=== PATIENT | female | born 1975 | race Caucasian/White ===

== ENCOUNTER → 2018-09-09 11:27 | Outpatient (CLI) | payer OTHER, SELFPAY ==
--- NOTE | 2018-09-09 | DI.MG.S_ITS ---
BILATERAL DIGITAL SCREENING MAMMOGRAM 3D/2D WITH CAD: 09/09/2018 CLINICAL: Routine screening. Family history of breast cancer. Comparison is made to exams dated: 09/07/2017 mammogram, 09/04/2016 mammogram, and 01/09/2014 mammogram - [facility]. The tissue of both breasts is extremely dense, which lowers the sensitivity of mammography. Current study was also evaluated with a Computer Aided Detection (CAD) system. No significant masses, calcifications, or other findings are seen in either breast. There has been no significant interval change. IMPRESSION: NEGATIVE There is no mammographic evidence of malignancy. A 1 year screening mammogram is recommended. This exam was interpreted at Station ID: [id number]. NOTE: For mammograms, a report in lay terms will be sent to the patient. Approximately 15% of breast malignancies will not be visualized mammographically. In the management of a palpable breast mass, a negative mammogram must not discourage biopsy of a clinically suspicious lesion. Electronically Signed By: Tonja cardoso/florentino:09/10/2018 09:01:40 letter sent: Normal Exam ACR BI-RADS Category 1: Negative 3341F
== END ==
PROVIDERS: PCP Physician Assistant; Visit Provider Physician Assistant
DX: Z12.31 Encounter for screening mammogram for malignant neoplasm of breast (principal); Z80.3 Family history of malignant neoplasm of breast
CPT/HCPCS: 77063; 77067

== ENCOUNTER → 2018-11-19 07:31 | Outpatient (CLI) | payer OTHER, SELFPAY ==
[2018-11-19 09:10] LABS: Add Manual Diff / Slide Review NO; Basophils Absolute Auto 0 /uL (0-100); Basophils Percent Auto 0.7 % (0-2); Eosinophils Absolute Auto 200 /uL (0-450); Eosinophils Percent Auto 3.1 % (2-4); Hematocrit 47.6 % (36-46); Hemoglobin 16.6 g/dL (12.0-16.0); Lymphocytes Absolute Auto 1800 /uL (1100-4500); Lymphocytes Percent Auto 31.4 % (25-40); Mean Corpuscular HGB Conc 34.9 % (30-36); Mean Corpuscular Hemoglobin 32.4 PG (26-34); Mean Corpuscular Volume 92.9 fL (80-100); Monocytes Absolute Auto 700 /uL (0-900); Monocytes Percent Auto 11.6 % (3-14); Neutrophils Absolute Auto 3100 /uL (1500-7000); Neutrophils Percent Auto 53.2 % (50-75); Platelet Count 315 X10^3/uL (150-400); Red Blood Cell Count 5.12 X10^6/uL (4.0-5.2); Red Cell Distribution Width 12.3 % (11.6-14.8); White Blood Cell Count 5.8 X10^3/uL (4.5-11.0)
[2018-11-19 09:17] LABS: Iron 122 ug/dL (37-170)
[2018-11-19 09:19] LABS: Alanine Aminotransferase 30 IU/L (9-52); Albumin 4.6 g/dL (3.5-5.0); Albumin Globulin Ratio 1.5 (1.0-2.8); Alkaline Phosphatase 99 U/L (38-126); Aspartate Aminotransferase 26 IU/L (14-36); BUN Creatinine Ratio 24.3 (6-22); Bilirubin Total 0.9 mg/dL (0.2-1.3); Blood Urea Nitrogen 17 mg/dL (7-17); Calcium 9.4 mg/dL (8.4-10.2); Carbon Dioxide 27 mmol/L (22-32); Chloride 97 mmol/L (98-107); Cholesterol 180 mg/dL (140-199); Estimated Glomerular Filt Rate > 60.0 mL/min (>60); Globulin 3.1 g/dL (1.7-4.1); Glucose 101 mg/dL (70-100); HDL Cholesterol 39 mg/dL (40-60); HEMOLYSIS < 15 (0-50); LDL Cholesterol Calculated 106 mg/dL (<100); Potassium 3.5 mmol/L (3.4-5.1); Sodium 138 mmol/L (137-145); Total Protein 7.7 g/dL (6.3-8.2); Triglycerides 177 mg/dL (35-150)
== END ==
PROVIDERS: PCP Physician Assistant; Visit Provider Physician Assistant
DX: E78.5 Hyperlipidemia, unspecified (principal); E83.110 Hereditary hemochromatosis
CPT/HCPCS: 36415; 80053; 80061; 83540; 85025

== ENCOUNTER → 2019-03-22 10:35 | Outpatient (CLI) | payer OTHER, SELFPAY ==
[2019-03-22 12:40] LABS: Follicle Stimulating Hormone 1.53 mIU/mL
[2019-03-22 12:53] LABS: Thyroid Stimulating Hormone 2.16 uIU/mL (0.47-4.68)
[2019-03-22 12:56] LABS: Estradiol, Total 61.4 pg/mL
[2019-03-22 14:02] LABS: Testosterone 62.5 ng/dL (5.71-77.0)
[2019-03-25 11:58] LABS: Estrogen 264.4 pg/mL
== END ==
PROVIDERS: PCP Physician Assistant; Visit Provider Physician Assistant
DX: E28.39 Other primary ovarian failure (principal); L70.9 Acne, unspecified; N89.8 Other specified noninflammatory disorders of vagina; E78.5 Hyperlipidemia, unspecified; R53.83 Other fatigue; R63.5 Abnormal weight gain
CPT/HCPCS: 36415; 82670; 82672; 83001; 84144; 84403; 84443

== ENCOUNTER → 2019-06-27 11:14 | Outpatient (CLI) | payer OTHER, SELFPAY | PROVIDERS: PCP Physician Assistant; Visit Provider Internal Medicine Endocrinology, Diabetes & Metabolism | DX: R63.5 Abnormal weight gain (principal) | CPT/HCPCS: 82530 ==

== ENCOUNTER → 2019-07-12 12:33 | Outpatient (CLI) | payer OTHER, SELFPAY ==
[2019-07-12 14:42] LABS: Free T4, Direct Thyroxine 0.85 ng/dL (0.78-2.19)
[2019-07-12 14:56] LABS: Thyroid Stimulating Hormone 2.18 uIU/mL (0.47-4.68)
== END ==
PROVIDERS: PCP Physician Assistant; Visit Provider Internal Medicine Endocrinology, Diabetes & Metabolism
DX: R63.5 Abnormal weight gain (principal)
CPT/HCPCS: 36415; 84439; 84443

== ENCOUNTER → 2019-09-28 10:55 | Outpatient (CLI) | payer OTHER, SELFPAY ==
--- NOTE | 2019-09-28 | DI.MG.S_ITS ---
BILATERAL DIGITAL SCREENING MAMMOGRAM 3D/2D WITH CAD: 09/28/2019 CLINICAL: Routine screening. Family history of breast cancer. Comparison is made to exams dated: 09/09/2018 mammogram, 09/07/2017 mammogram, and 09/04/2016 mammogram - [facility]. The tissue of both breasts is extremely dense, which lowers the sensitivity of mammography. Current study was also evaluated with a Computer Aided Detection (CAD) system. No significant masses, calcifications, or other findings are seen in either breast. There has been no significant interval change. IMPRESSION: NEGATIVE There is no mammographic evidence of malignancy. A 1 year screening mammogram is recommended. This exam was interpreted at Station ID: [id number]. NOTE: For mammograms, a report in lay terms will be sent to the patient. Approximately 15% of breast malignancies will not be visualized mammographically. In the management of a palpable breast mass, a negative mammogram must not discourage biopsy of a clinically suspicious lesion. Electronically Signed By: Halnia hernandez/florentino:09/28/2019 11:40:16 letter sent: Normal Exam ACR BI-RADS Category 1: Negative 3341F
== END ==
PROVIDERS: PCP Physician Assistant; Visit Provider Physician Assistant
DX: Z12.31 Encounter for screening mammogram for malignant neoplasm of breast (principal); Z80.3 Family history of malignant neoplasm of breast
CPT/HCPCS: 77063; 77067

== ENCOUNTER → 2020-08-02 13:57 | Outpatient (CLI) | payer OTHER, SELFPAY ==
[2020-08-04 13:17] LABS: COVID19 Sendout Not Detected
== END ==
PROVIDERS: PCP Student in an Organized Health Care Education/Training Program; Visit Provider Physician Assistant
DX: Z11.59 Encounter for screening for other viral diseases (principal); R05 Cough
CPT/HCPCS: 87635

== ENCOUNTER → 2020-08-19 13:52 | Outpatient (CLI) | payer OTHER, SELFPAY ==
[2020-08-19 15:59] LABS: Hemoglobin A1C% w Est Avg Glu 5.5 % (4.0-6.0)
[2020-08-19 16:00] LABS: C-Reactive Protein Quant 0.7 mg/dL (<1.0)
[2020-08-19 16:42] LABS: Vitamin D 25 Hydroxy (D3) 48.6 ng/mL (30.0-100.0)
== END ==
PROVIDERS: PCP Student in an Organized Health Care Education/Training Program; Referring Provider Student in an Organized Health Care Education/Training Program; Visit Provider Internal Medicine Endocrinology, Diabetes & Metabolism
DX: E66.9 Obesity, unspecified (principal); Z68.34 Body mass index [BMI] 34.0-34.9, adult; G54.2 Cervical root disorders, not elsewhere classified; M79.7 Fibromyalgia; M89.8X9 Other specified disorders of bone, unspecified site
CPT/HCPCS: 36415; 82306; 83036; 86140

== ENCOUNTER → 2020-10-08 11:52 | Outpatient (CLI) | payer OTHER, SELFPAY | PROVIDERS: PCP Student in an Organized Health Care Education/Training Program; Referring Provider Student in an Organized Health Care Education/Training Program; Visit Provider Student in an Organized Health Care Education/Training Program | DX: Z12.31 Encounter for screening mammogram for malignant neoplasm of breast (principal); Z53.9 Procedure and treatment not carried out, unspecified reason ==

== ENCOUNTER → 2020-11-08 14:52 | Outpatient (CLI) | payer OTHER, SELFPAY ==
--- NOTE | 2020-11-08 14:53 | DI.MG.S_ITS ---
BILATERAL DIGITAL DIAGNOSTIC MAMMOGRAM 3D/2D: 11/08/2020 CLINICAL: Left breast lump. Comparison is made to exams dated: 09/28/2019 mammogram, 09/09/2018 mammogram, 09/07/2017 mammogram, and 09/04/2016 mammogram - [facility]. The tissue of both breasts is extremely dense, which lowers the sensitivity of mammography. No significant masses, calcifications, or other findings are seen in either breast. IMPRESSION: INCOMPLETE: NEEDS ADDITIONAL IMAGING EVALUATION No mammographic evidence of malignancy. A targeted ultrasound of the palpable abnormality in the left breast is recommended and will immediately follow. This exam was interpreted at Station ID: [id number]. NOTE: For mammograms, a report in lay terms will be sent to the patient. Approximately 15% of breast malignancies will not be visualized mammographically. In the management of a palpable breast mass, a negative mammogram must not discourage biopsy of a clinically suspicious lesion. Electronically Signed By: Ernie Wilks M.D. slc/:11/08/2020 16:17:27 ACR BI-RADS Category 0: Incomplete 3340F
--- NOTE | 2020-11-08 14:53 | DI.US.S_ITS ---
LIMITED ULTRASOUND OF LEFT BREAST: 11/08/2020 CLINICAL: Patient returns today to evaluate a focal asymmetry in the left breast. Comparison is made to exams dated: 11/08/2020 mammogram, 09/28/2019 mammogram, 09/09/2018 mammogram, 09/07/2017 mammogram, 09/04/2016 mammogram, and 01/09/2014 mammogram - [facility]. Color flow and real-time ultrasound of the left breast 2 o'clock region were performed. Matias scale images of the real-time examination were reviewed. There is a benign 0.5 cm x 0.4 cm x 0.4 cm round cyst in the left breast at 2 o'clock posterior depth 2 cm from the nipple. This round cyst appears anechoic with a well-defined boundary and posterior acoustic enhancement. This likely correlates as palpated. Color flow imaging demonstrates that there is no vascularity present. IMPRESSION: BENIGN There is no sonographic evidence of malignancy. The 0.5 cm cyst in the left breast in the region of the palpable abnormality is consistent with a simple cyst and is benign. A 1 year screening mammogram is recommended. Exam findings were conveyed to the patient. Patient is advised to monitor for significant change. This exam was interpreted at Station ID: [id number]. Electronically Signed By: Ernie Wilks M.D. [facility]/:11/08/2020 16:21:36 letter sent: Normal Exam Ultrasound BI-RADS: 2 Benign
== END ==
PROVIDERS: PCP Student in an Organized Health Care Education/Training Program; Referring Provider Registered Nurse; Visit Provider Registered Nurse
DX: R92.8 Other abnormal and inconclusive findings on diagnostic imaging of breast (principal); N64.4 Mastodynia; N60.02 Solitary cyst of left breast
CPT/HCPCS: 76642; 77066; G0279

== ENCOUNTER → 2021-01-23 12:21 | Outpatient (CLI) | payer OTHER, SELFPAY ==
--- NOTE | 2021-01-23 12:22 | DI.ECHO.S_ITS ---
[facility]---------+ [facility] +---------+ : : [address] : [address] : : : : [id number] : : : : Phone: [phone]+ Echocardiogram Report + + :Name: ROYER WHITTINGTON Study Date: 01/23/2021 Height: 62 in : :[facility] ReadingLocation: Weight: 180 lb : : Gender: Female BSA: 1.8 m2 : :: 1975 Age: 45 yrs BP: 135/90 mmHg: :Reason For Study: Murmur : :Ordering Physician: JASON : :KELSEY Performed By: Timmy Starkey : :Referring: KELSEY GOMEZ : + + Interpretation Summary The left ventricle is normal in size and wall thickness. The ejection fraction is estimated to be 65-70%. The right ventricle is normal in size and function. There is mild tricuspid regurgitation. The right ventricular systolic pressure is estimated to be at least 26 mmHg based on an estimated right atrial pressure of 3 mm Hg. Procedure: A two-dimensional transthoracic echocardiogram with color flow and Doppler was performed. The study quality was technically adequate. There is no prior echocardiogram noted for this patient. The patient was in sinus rhythm with heart rates between 70-75 bpm during the exam. Left Ventricle: The left ventricle is normal in size and wall thickness. There is no thrombus. Left ventricular systolic function is normal. The ejection fraction is estimated to be 65-70%. There are no focal wall motion abnormalities. Diastolic parameters suggest probable normal left ventricular diastolic function and normal filling pressures. Right Ventricle: The right ventricle is normal in size and function. Atria: Both atria are normal in size. There is no Doppler evidence for an interatrial shunt. Mitral Valve: The mitral valve is normal in structure and function. There is trace mitral regurgitation. Aortic Valve: The aortic valve is trileaflet. The aortic valve opens well. There is no aortic valve stenosis. No aortic regurgitation is present. Tricuspid Valve: The tricuspid valve is normal. There is mild tricuspid regurgitation. The right ventricular systolic pressure is estimated to be at least 26 mmHg based on an estimated right atrial pressure of 3 mm Hg. Pulmonic Valve: The pulmonic valve is not well seen, but is grossly normal. There is a trace or physiologic amount of pulmonic regurgitation. Great Vessels: The aortic root is normal size. The dimensions of the ascending aorta are normal. The IVC is of normal diameter and collapses greater than 50% with a sniff. This suggests a low right atrial pressure of 3 mm Hg. Pericardium/ Pleura There is no pericardial effusion. There is no pleural effusion. MMode/2D Measurements & Calculations LVIDd: 4.1 cm LVOT diam: 1.9 cm LVIDs: 2.6 cm Ao root diam: 2.6 cm FS: 36.1 % asc Aorta Diam: 3.2 cm IVSd: 0.89 cm LVPWd: 0.83 cm LV justin. diameter/BSA (cm/m^2): 2.2 LV sys. diameter/BSA (cm/m^2): 1.4 LA A2 area: 13.7 cm2 RA area: 13.3 cm2 LA A4 area: 15.3 cm2 IVC diam: 1.2 cm LA length (vol): 4.8 cm LA vol: 37.2 ml LA vol index: 20.4 ml/m2 RVD1 (basal): 3.3 cm Doppler Measurements & Calculations Ao V2 max: 144.6 cm/sec LVOT Max Arcenio: 112.1 cm/sec Ao V2 mean: 101.6 cm/sec LV V1 max P.0 mmHg Ao max P.4 mmHg LV V1 VTI: 23.2 cm Ao mean P.6 mmHg SOPHY(I,D): 2.2 cm2 Ao V2 VTI: 29.1 cm SOPHY(V,D): 2.1 cm2 sev ratio: 0.80 SOPHY indexed to BSA (cm^2/m^2): 1.2 MV E max arcenio: 91.4 cm/sec TR max arcenio: 240.3 cm/sec MV A max arcenio: 56.4 cm/sec TR max P.1 mmHg MV E/A: 1.6 PA V2 max: 98.6 cm/sec Med Peak E' Arcenio: 10.5 cm/sec PA V2 mean: 71.3 cm/sec E/E' med: 8.7 PA mean P.2 mmHg Lat Peak E' Arcenio: 15.9 cm/sec PA pr(Accel): 25.0 mmHg E/E' lat: 5.8 E/e' average: 7.2 MV dec time: 0.22 sec SV(LVOT): 63.9 ml Reading Physician:06:06 PM
== END ==
PROVIDERS: PCP Student in an Organized Health Care Education/Training Program; Referring Provider Student in an Organized Health Care Education/Training Program; Visit Provider Student in an Organized Health Care Education/Training Program
DX: R55 Syncope and collapse (principal); R01.1 Cardiac murmur, unspecified; I07.1 Rheumatic tricuspid insufficiency
CPT/HCPCS: 93306

== ENCOUNTER → 2021-02-03 15:11 | Outpatient (CLI) | payer OTHER, SELFPAY ==
--- NOTE | 2021-02-18 17:39 | P.HOLT.S_ITS ---
Advertising Traffic Manager Report Referral & Results Date Patient Seen: 02/03/21 Requesting provider: Guerrero Mayo Indication: Palpitations Duration of monitoring (days): 4 Diary information: There were 7 patient triggered events and 6 patient diary entries Patient triggered events were associated with (within 45 seconds) sinus rhythm and PACs Patient diary events were associated with (within 45 seconds) sinus rhythm only Data: Minimum heart rate identified was 51 beats per minute at 06:55 on 02/06/2021 Maximum heart rate was 136 beats per minute at 19:04 on 02/05/2021 Less than 1% of identified beats were ventricular or supraventricular ectopic in origin, which would classify them as rare. No other dysrhythmias were identified Impression: Patient with rare PACs Patient patient events it is difficult to neck patient reported symptoms with any one dysrhythmia, especially since all of the patient diary events were associated with only sinus rhythm Clinical correlation suggested
== END ==
PROVIDERS: PCP Student in an Organized Health Care Education/Training Program; Referring Provider Student in an Organized Health Care Education/Training Program; Visit Provider Student in an Organized Health Care Education/Training Program
DX: R00.2 Palpitations (principal); R42 Dizziness and giddiness
CPT/HCPCS: 93242; 93244

== ENCOUNTER → 2021-03-13 07:58 | Outpatient (CLI) | payer OTHER, SELFPAY ==
--- NOTE | 2021-03-13 | DI.RAD.S_ITS ---
PROCEDURE: FL BARIUM SWALLOW W SPEECH INDICATIONS: Dysphagia, pharyngoesophageal phase COMPARISON: None. TECHNIQUE: Examination was conducted in conjunction with speech pathology per standard protocol. In the lateral projection, filming was performed of the patient swallowing. AP projection filming may also be performed with patient swallowing. COMPARISON: FINDINGS: Function: The oral preparatory phase appears normal, with proper containment. The subsequent oral propulsive phase, pharyngeal phase, and esophageal phase of swallowing also appear normal with all proffered substances. No laryngotracheal penetration or aspiration. No pathologic vallecular pooling. Morphology: No cricopharyngeal bar is identified. No cervical esophageal webs. No Zenker's diverticulum. No strictures. IMPRESSION: Overall, unremarkable examination as above Dictated by: Kenny Frias M.D. on 03/13/2021 at 9:54 Approved by: Kenny Frias M.D. on 03/13/2021 at 9:55
--- NOTE | 2021-03-13 13:52 | ST.SWALLOW ---
Visit Care Team Role Provider Type Guerrero Mayo MD Primary Care Provider Physician Specialty: Internal Medicine Address: [address] [place] [address], [address], [place], [address] Email: [email or web address] Joe Ray MD Attending Provider Physician Referring Provider Specialty: Ear, Nose, Throat Address: [address] [place] [address], [id number] Email: [email or web address] Modified Barium Swallow Study MOTION PICTURE DIRECTOR Modified Barium Swallow Study Start: 03/13/21 11:05 Freq: Status: Active Protocol: Document 03/13/21 11:07 LNK (Rec: 03/13/21 11:56 LNK [id number]) Modified Barium Swallow Study Total Time Visit Start Time 08:30 Visit Stop Time 09:00 Total Visit Minutes [address] Ray; Dr Hernandez Reason for Referral dysphagia Setting Setting Outpatient Care Patient Information Identification Type Name,Date of Patient History Pt was seen for a Modified Barium Swallow Study (MBSS) secondary to a feeling of something (a lump)in her throat that moves around. She described sneezing fits that result in ejected pieces of food just like tonsil stones, but from deeper in her throat, pointing to base of tongue area. She reported that if she eats anything dry (i.e ., crackers, breads, etc) she needs to drink a lot of water or the food will stick in her throat (pointing to the area near her sternal notch. Additionally large vitamins/ supplement pills will get stuck, needed more water to dislodge the pill/capsule. She reported a hx of GERD, which has resolved with the exception of eating garlic. Pt saw Dr. Ray, ENT, who described a normal examination . He did mention muscle dystonia as a possible etiology. Subjective Observations Pt was seated in the fluoroscopy chair. Instructions and procedures were described for the pt. She indicated she understood and agreed to proceed. Patient Positioning Position View Lateral Imaging Lateral View Textures Administered Trials Presented Thin Liquid via Spoon,Thin Liquid via Cup,Pudding Thick Liquid via Spoon,Regular Textures,Barium Tablet Oral Phase Source: MBSIMP (TM) (C) Bolus Specific Scoring Grid Lip Closure No Impairment (WNL) Tongue Control During Bolus Hold No Impairment (WNL) Bolus Prep/Mastication No Impairment (WNL) Bolus Transport/Lingual Motion No Impairment (WNL) A/P Lingual Propulsion Delay No Oral Residue No Impairment (WNL) Residue Clearing No Impairment (WNL) Nasal Regurgitation No Additional Oral Phase Observations Structures and function observed to be WNL Pharyngeal Phase Source: MBSIMP (TM) (C) Bolus Specific Scoring Grid Delayed Initiation of Pharyngeal Swallow No Soft Palate Elevation No Impairment (WNL) Tongue Base Strength/Range of Motion No Impairment (WNL) Residue Along the Tongue Base No Laryngeal Elevation No Impairment (WNL) Anterior Hyoid Movement No Impairment (WNL) Epiglottic Range of Motion No Impairment (WNL) Laryngeal Vestibular Closure No Impairment (WNL) Pharyngeal Stripping Wave No Impairment (WNL) Posterior Pharyngeal Wall Residue No Upper Esophageal Sphincter Opening No Impairment (WNL) Residue in the Pyriform Sinuses No Pharyngoesophageal Backflow Observed No Additional Pharyngeal Phase Observations There did not appear to be pharyngeal phase dysphagia. However, across all swallow trials, a moderately large protuberance was observed on the anterior wall of the pharynx immediately above or at the pharyngoesophageal stricture. This tissue was noted during active swallowing . At rest, the the protuberance was not apparent. During the swallow, the bolus flow altered the swallows. Additionally, at the base of the tongue, tissue was observed that appeared to be enlarged lingual tonsils. This tissue also altered the flow of the bolus to the esophagus. Combined the flow of the bolus was S-shaped. It is unknown if these tissue masses are related to muscle dystionia. However they do impact the bolus flow and they could cause foods to become stuck. A/P View Clinical Impressions Dysphagia Type No overt s/sx dysphagia Findings Based on the above findings, it is possible that the sensation of a lump in the pt' s throat may be related to the described tissue at the base of the tongue and near the PES /lower pharyngeal area. Further, the lingual tonsil tissue may be the source of the tonsil-like substances coming into her mouth with sneezing fits. Patient Appropriate for Therapy No Recommendations Treatment Plan Recommended Referrals Primary Care Physician,GI Consult,ENT Consult Additional Recommended Referrals Am referring back to ENT to assess further. Also GI referral as indicated
== END ==
PROVIDERS: PCP Student in an Organized Health Care Education/Training Program; Referring Provider Otolaryngology; Visit Provider Otolaryngology
DX: R13.14 Dysphagia, pharyngoesophageal phase (principal)
CPT/HCPCS: 74230; 92611

== ENCOUNTER → 2021-03-31 10:21 | Outpatient (CLI) | payer OTHER, SELFPAY ==
[2021-04-02 11:14] LABS: Methylmalonic Acid,Serum 132 nmol/L (0-378)
== END ==
PROVIDERS: PCP Student in an Organized Health Care Education/Training Program; Referring Provider Psychiatry & Neurology Neurology; Visit Provider Psychiatry & Neurology Neurology
DX: R41.89 Other symptoms and signs involving cognitive functions and awareness (principal)
CPT/HCPCS: 36415; 83090; 83921

== ENCOUNTER → 2021-04-29 10:39 | Outpatient (CLI) | payer OTHER, SELFPAY | PROVIDERS: PCP Student in an Organized Health Care Education/Training Program; Referring Provider Psychiatry & Neurology Neurology; Visit Provider Psychiatry & Neurology Neurology | DX: G20 Parkinson's disease (principal) | CPT/HCPCS: 36415; 81291 ==

== ENCOUNTER → 2021-05-05 09:40 | Outpatient (CLI) | payer OTHER, SELFPAY ==
--- NOTE | 2021-05-05 | DI.CT.S_ITS ---
PROCEDURE: CT SOFT TISSUE NECK W CON INDICATIONS: NECK MASS TECHNIQUE: After the administration of intravenous contrast, 3.0 mm axial sections acquired from the sella to the aortic arch. Additional oblique axial 3.0 mm sections acquired through the pharynx. 3 mm thick coronal and sagittal reformats were generated. For radiation dose reduction, the following was used: automated exposure control. COMPARISON: None. FINDINGS: Image quality: Excellent. Lymph nodes: No enlarged lymph nodes seen throughout the neck. Vessels: Visualized vasculature appears patent. Neck spaces: The oropharynx, nasopharynx, and pharynx demonstrate no mucosal lesions. The vocal cords, false vocal cords, pyriform sinuses, epiglottis, vallecula, and tongue base all appear normal. Extramucosal spaces appear unremarkable. Glands: The parotid and submandibular glands appear normal. Thyroid gland is normal. Miscellaneous: Visualized brain and orbits appear normal. Lung apices appear clear. Superficial soft tissues appear normal. Bones: No suspicious bony lesions. Convex right scoliosis of the upper thoracic spine noted. Visualized sinuses and mastoids appear unremarkable. IMPRESSION: 1. No mucosal-based mass. 2. No lymphadenopathy based on size criteria. Dictated by: Chelita Bell MD, PhD on 05/05/2021 at 10:34 Approved by: Chelita Bell MD, PhD on 05/05/2021 at 10:37
== END ==
PROVIDERS: PCP Student in an Organized Health Care Education/Training Program; Referring Provider Specialist; Visit Provider Specialist
DX: R22.1 Localized swelling, mass and lump, neck (principal)
CPT/HCPCS: 70491

== ENCOUNTER → 2021-12-31 14:21 | Outpatient (CLI) | payer OTHER, SELFPAY ==
--- NOTE | 2021-12-31 14:23 | DI.MG.S_ITS ---
BILATERAL DIGITAL SCREENING MAMMOGRAM 3D/2D WITH CAD: 12/31/2021 CLINICAL: Routine screening. Comparison is made to exams dated: 11/08/2020 mammogram, 09/28/2019 mammogram, and 09/09/2018 mammogram - [facility]. The tissue of both breasts is extremely dense, which lowers the sensitivity of mammography. Current study was also evaluated with a Computer Aided Detection (CAD) system. There are grouped fine punctate calcifications in the left breast at 1 o'clock posterior depth. These are more prominent and increased in number. No other significant masses, calcifications, or other findings are seen in either breast. IMPRESSION: INCOMPLETE: NEEDS ADDITIONAL IMAGING EVALUATION The grouped fine punctate calcifications in the left breast are indeterminate. Magnification and additional views are recommended. This exam was interpreted at Station ID: [id number]. NOTE: For mammograms, a report in lay terms will be sent to the patient. Approximately 15% of breast malignancies will not be visualized mammographically. In the management of a palpable breast mass, a negative mammogram must not discourage biopsy of a clinically suspicious lesion. Electronically Signed By: Halina hernandez/florentino:12/31/2021 15:11:40 letter sent: Additional Imaging Needed ACR BI-RADS Category 0: Incomplete 3340F
== END ==
PROVIDERS: PCP Student in an Organized Health Care Education/Training Program; Referring Provider Student in an Organized Health Care Education/Training Program; Visit Provider Student in an Organized Health Care Education/Training Program
DX: Z12.31 Encounter for screening mammogram for malignant neoplasm of breast (principal)
CPT/HCPCS: 77063; 77067

== ENCOUNTER → 2022-02-06 14:08 | Outpatient (CLI) | payer OTHER, SELFPAY ==
--- NOTE | 2022-02-06 14:09 | DI.MG.S_ITS ---
UNILATERAL LEFT DIGITAL DIAGNOSTIC MAMMOGRAM 3D/2D WITH ADDITIONAL VIEWS: 02/06/2022 CLINICAL: Additional evaluation requested from prior study. Comparison is made to exams dated: 12/31/2021 mammogram, 11/08/2020 mammogram, and 09/28/2019 mammogram - [facility]. The tissue of left breast is extremely dense, which lowers the sensitivity of mammography. There are grouped fine punctate calcifications in the left breast at 1 o'clock posterior depth. These are seen in additional views. There also are new grouped amorphous calcifications in the left breast middle depth superior region seen best on the mediolateral view. These are seen in additional views. No other significant masses or calcifications are seen in the breast. IMPRESSION: SUSPICIOUS OF MALIGNANCY The grouped fine punctate calcifications in the left breast at 1 o'clock posterior depth are at a moderate suspicion for malignancy. A stereotactic biopsy is recommended. The grouped amorphous calcifications in the left breast middle depth superior region seen on the mediolateral view are at a moderate suspicion for malignancy. A stereotactic biopsy is recommended. These findings and recommendation were discussed with the patient by Dr Bell. This exam was interpreted at Station ID: [id number]. NOTE: For mammograms, a report in lay terms will be sent to the patient. Approximately 15% of breast malignancies will not be visualized mammographically. In the management of a palpable breast mass, a negative mammogram must not discourage biopsy of a clinically suspicious lesion. Electronically Signed By: Flaquito Adames acr/:02/06/2022 14:42:00 letter sent: Biopsy Required ACR BI-RADS Category 4b: Suspicious abnormality - intermediate suspicion of malignancy 3344F
== END ==
PROVIDERS: PCP Student in an Organized Health Care Education/Training Program; Referring Provider Student in an Organized Health Care Education/Training Program; Visit Provider Student in an Organized Health Care Education/Training Program
DX: R92.8 Other abnormal and inconclusive findings on diagnostic imaging of breast (principal); R92.1 Mammographic calcification found on diagnostic imaging of breast
CPT/HCPCS: 77065; G0279

== ENCOUNTER → 2022-06-05 12:59 | Outpatient (CLI) | payer OTHER, SELFPAY ==
[2022-06-05 14:07] LABS: Hematocrit 48.6 % (36-46)
[2022-06-05 15:25] LABS: Hemoglobin A1C% w Est Avg Glu 5.3 % (4.0-6.0)
[2022-06-05 15:37] LABS: Creatine Kinase 84 U/L (30-135); HEMOLYSIS 31 (0-50); Iron 128 ug/dL (37-170)
[2022-06-05 15:49] LABS: Percent Iron Saturation 40 % (15-50); Total Iron Binding Capacity 321 ug/dL (265-497); Transferrin 251 mg/dL (206-381)
[2022-06-05 16:14] LABS: Ferritin 66 ng/mL (6-137)
== END ==
PROVIDERS: PCP Student in an Organized Health Care Education/Training Program; Referring Provider Student in an Organized Health Care Education/Training Program; Visit Provider Student in an Organized Health Care Education/Training Program
DX: E83.110 Hereditary hemochromatosis (principal); M79.10 Myalgia, unspecified site; E66.9 Obesity, unspecified; R73.9 Hyperglycemia, unspecified
CPT/HCPCS: 36415; 82550; 82728; 83036; 83540; 83550; 85014; 85018

== ENCOUNTER → 2022-06-09 14:30 | Outpatient (CLI) | payer OTHER, SELFPAY ==
[2022-06-09 15:44] LABS: Add Manual Diff / Slide Review NO; Basophils Absolute Auto 0 /uL (0-100); Basophils Percent Auto 0.6 % (0-2); Eosinophils Absolute Auto 100 /uL (0-450); Eosinophils Percent Auto 0.6 % (2-4); Hematocrit 47.1 % (36-46); Hemoglobin 16.5 g/dL (12.0-16.0); Lymphocytes Absolute Auto 1900 /uL (1100-4500); Lymphocytes Percent Auto 22.1 % (25-40); Mean Corpuscular Hemoglobin 32.4 PG (26-34); Mean Corpuscular Volume 92.7 fL (80-100); Monocytes Absolute Auto 400 /uL (0-900); Monocytes Percent Auto 5.3 % (3-14); Neutrophils Absolute Auto 6000 /uL (1500-7000); Neutrophils Percent Auto 71.4 % (50-75); Platelet Count 341 X10^3/uL (150-400); Red Blood Cell Count 5.09 X10^6/uL (4.0-5.2); Red Cell Distribution Width 12.1 % (11.6-14.8); White Blood Cell Count 8.4 X10^3/uL (4.5-11.0)
[2022-06-09 16:17] LABS: Alanine Aminotransferase 17 IU/L (<35); Albumin 4.6 g/dL (3.5-5.0); Albumin Globulin Ratio 1.5 (1.0-2.8); Alkaline Phosphatase 98 U/L (38-126); Aspartate Aminotransferase 22 IU/L (14-36); BUN Creatinine Ratio 15.9 (6-22); Bilirubin Total 1.1 mg/dL (0.2-1.3); Blood Urea Nitrogen 11 mg/dL (7-17); Calcium 9.2 mg/dL (8.4-10.2); Carbon Dioxide 25 mmol/L (22-32); Chloride 100 mmol/L (98-107); Estimated Glomerular Filt Rate > 60 mL/min (>60); Globulin 3.1 g/dL (1.7-4.1); Glucose 132 mg/dL (70-100); HEMOLYSIS 16 (0-50); Lipase 149 U/L (23-300); Sodium 138 mmol/L (137-145); Total Protein 7.7 g/dL (6.3-8.2)
== END ==
PROVIDERS: PCP Student in an Organized Health Care Education/Training Program; Referring Provider Student in an Organized Health Care Education/Training Program; Visit Provider Student in an Organized Health Care Education/Training Program
DX: K81.9 Cholecystitis, unspecified (principal); K85.90 Acute pancreatitis without necrosis or infection, unspecified
CPT/HCPCS: 36415; 80053; 83690; 85025

== ENCOUNTER → 2022-06-09 16:48 | Outpatient (CLI) | payer OTHER, SELFPAY ==
--- NOTE | 2022-06-09 16:53 | DI.US.S_ITS ---
PROCEDURE: US ABDOMEN LIMITED INDICATIONS: ABD PAIN TECHNIQUE: Real-time scanning was performed of the abdominal and retroperitoneal organs, with image documentation. COMPARISON: None. FINDINGS: Liver: Liver is normal in size with increased liver parenchymal echotexture. No discrete hepatic lesion is seen. Gallbladder: 6 mm stone is seen in gallbladder lumen. No gallbladder wall thickening or pericholecystic fluid. No sonographic Tompkins sign. Biliary ducts: Intrahepatic bile ducts are non-dilated. Extrahepatic bile duct caliber measures 4 mm. Normal is 6-7 mm or less in diameter, or 10 mm or less post-cholecystectomy. Pancreas: Visualized portions of the pancreas are sonographically normal. IMPRESSION: 1. Mild hepatic steatosis, no discrete hepatic lesion. 2. Cholelithiasis without sonographic evidence of acute cholecystitis. No biliary ductal dilatation. Dictated by: Delta Mayes M.D. on 06/09/2022 at 18:06 Approved by: Delta Mayes M.D. on 06/09/2022 at 18:07
== END ==
PROVIDERS: PCP Student in an Organized Health Care Education/Training Program; Referring Provider Student in an Organized Health Care Education/Training Program; Visit Provider Student in an Organized Health Care Education/Training Program
DX: K80.20 Calculus of gallbladder without cholecystitis without obstruction (principal); K85.90 Acute pancreatitis without necrosis or infection, unspecified; K76.0 Fatty (change of) liver, not elsewhere classified
CPT/HCPCS: 36415; 76705; 80053; 83690; 85025

== ENCOUNTER 2022-06-30 09:24 | Day surgery (SDC) | payer OTHER, SELFPAY ==
[2022-06-19 13:18] VITALS: BMI 31.3
[2022-06-30] VITALS (18 sets, daily range): BP systolic 114–142; BP diastolic 57–87; PULSE 69–102; RESP 13–19; TEMP 35.5–37.3; O2SAT 94–100; BMI 31.3
--- NOTE | 2022-06-30 | PATH_ITS ---
[facility] Accession Number: [id number] . 01 Material submitted: . gallbladder - GALLBLADDER . 01 Diagnosis: Gallbladder, Cholecystectomy: Chronic cholecystitis and cholelithiasis. MRV 07/02/2022 1207 Local . 01 Electronically signed: . Lavonne Shelton MD, Pathologist NPI- [id number] . 01 Gross description: . Received in formalin labeled with the patient's name and gallbladder and consists of an intact gallbladder measuring 8.2 x 2.6 x 1.0 cm. The serosa is violaceous and smooth, while the hepatic surface is rough and unremarkable. The cystic duct is received closed with a clamp and inked blue. No pericystic lymph node is identified. Opening the specimen reveals the lumen to be filled with red-brown mucoid material. The fundus has a curved, hook-shaped area consistent with a Phrygian cap containing a single adhikari roughened calculus measuring 0.7 cm in greatest dimension. The mucosa is adhikari-brown with pinpoint yellow areas consistent with cholesterol. No polyps or lesions are identified. The lane average 0.2 cm thick. Surveyor Hydrographic sections to include the cystic duct margin and full thickness cross sections are submitted in cassette A1. ([id number]) /[facility] 07/01/2022 1806 Local . 01 Pathologist provided ICD-10: K80.10 . 01 CPT . 551227 Specimen Comment: A courtesy copy of this report has been sent to [phone] Performed at: 01 [facility] [address] [place] [address] [address] [facility], [place], [place] [id number] MD Jas Moreno MD Phone: [phone]
[2022-06-30] MEDS: LACTATED RINGERS 1,000 ML 100 ML IV ×2 (09:57→12:56)
[2022-06-30 10:04] LABS: COVID19 -Nasal RAPID Negative (Negative)
--- NOTE | 2022-06-30 11:10 | PM.PREOP ---
Pre-operative Note COVID-19 COVID-19 status: Negative Result date/Date tested (Pos, Neg/Pending): 06/26/22 Interval Note History & Physical reviewed/Exam performed by Physician: Yes Changes to H&P: No ASA Class (for procedural sedation): II
[2022-06-30] MEDS: ACETAMINOPHEN 325 MG TABLET 975 MG PO (11:30)
[2022-06-30] MEDS: CEFAZOLIN 2 GM/100 ML PREMIX 100 ML IV (12:02)
--- NOTE | 2022-06-30 12:11 | SUR.OPER ---
Supine on padded OR bed, head on pillow, safety belt at thigh, left arm padded and tucked at side. Right arm secured on padded arm board <90 degrees abduction. Legs uncrossed. Padded footboard in place. Tape over blanket to secure lower legs. Position approved by anesthesia and surgeon.
[2022-06-30] MEDS: BUPIVACAINE 0.5% (PF) VIAL 30 ML INJ (12:21)
--- NOTE | 2022-06-30 13:20 | PM.OP.1 ---
Operative Date/Time/Diagnoses Date of procedure: 06/30/22 Time of procedure: 13:21 Pre-op diagnosis: Cholelithiasis Post-op diagnosis: same Procedure & Clinicians Procedure: Laparoscopic cholecystectomy Same procedure as scheduled: Yes Surgeon: Antione Barnes Anesthesia Type: General Operative Notes Procedure in detail: The patient was given preoperative antibiotic. The patient was brought to the operating room, placed on the table in the supine position. General endotracheal anesthesia was induced. The abdomen was prepped and draped. A time-out was performed. We made a 1 cm infraumbilical incision. We dissected down to the base of the umbilical stalk using cautery. We grasped the umbilical stalk with a Dawson clamp to elevate the abdominal wall. We scored the fascia in the midline with cautery 1 cm. We pierced the peritoneum with a Peon clamp. The Khloe port was placed and the abdomen was insufflated to 15 mmHg. A 5 mm 30 degree laparoscopic was inserted. There was no evidence of any injury from the entry. Next, we placed 5 mm ports in the subxiphoid position and right upper quadrant at the midclavicular line and anterior axillary line. Patient was then positioned in reverse Trendelenburg and the table was tilted to the left. The liver was rather enlarged and a gallbladder was quite intrahepatic. The gallbladder was grasped at the dome and retracted cephalad. There were filmy adhesions of the gallbladder to duodenum and viscera. These were carefully dissected using a combination of blunt dissection and cautery. We then dissected the cystic structures with a combination of hook cautery and blunt dissection. We obtained a critical view. We placed clips on the cystic duct and 3 branches of the cystic artery and divided the cystic duct and artery branches sharply between the clips. The gallbladder was then dissected off the liver and placed in a specimen retrieval bag. There was a portion of the gallbladder bed the towards the liver edge that had venous bleeding and would not respond to cautery. One piece of Surgicel was applied and hemostasis was observed. We irrigated the right upper quadrant and all the aspirate returned clear. We then removed the 5 mm ports under direct vision we removed the Khloe port. We then injected some local into the fascia and closed the fascia with 2 interrupted 0 Vicryl sutures. The skin incisions were closed with 4-0 Monocryl and Steri-Strips were applied. Band-Aids were applied over the Steri-Strips. EBL: 80 mL Specimen: Gallbladder Post-operative Condition: stable Disposition: PACU
[2022-06-30] MEDS: HYDROMORPHONE 2 MG INJ IV ×2 (14:00→14:13)
[2022-06-30] MEDS: ONDANSETRON 4 MG/2 ML INJ IV ×3 (14:05→22:46)
--- NOTE | 2022-06-30 14:26 | SUR.PHASEI ---
Spoke to Dr Barnes in OR #3. See new order for Ibuprofen x1 now and patient may take Ibuprofen at home 600mg every 8hours PRN.
[2022-06-30] MEDS: OXYCODONE IR 5 MG TABLET PO ×2 (14:35→15:34)
[2022-06-30] MEDS: IBUPROFEN 600 MG TABLET PO (14:59)
--- NOTE | 2022-06-30 15:35 | SUR.PHASEII ---
Ibuprofen given, pt still not comfortable rates pain 4/10. pt medicated with another oxycodone.
--- NOTE | 2022-06-30 15:52 | SUR.PHASEII ---
pt up to BR x2, steady when up. Dr. Barnes spoke with pt, has decided to keep pt overnight, pt's called and made aware. Awaiting bed to be cleaned.
--- NOTE | 2022-06-30 17:57 | SUR.PHASEII ---
Late entry: Pt transported to room 210 on room air and left with MARCIANO Jones and left in stable condition.
[2022-06-30] MEDS: SODIUM CHLORIDE 0.9% FLUSH 10 ML IV (21:19)
[2022-07-01] MEDS: HYDROCODONE/ACET 5/325 TABLET 1 TAB PO ×2 (01:08→08:51)
[2022-07-01 03:17] VITALS: BP 130/76; PULSE 88; RESP 18; TEMP 36.1; O2SAT 98
[2022-07-01] MEDS: ONDANSETRON 4 MG/2 ML INJ IV (04:45)
[2022-07-01 06:41] LABS: Alanine Aminotransferase 78 IU/L (<35); Albumin 4.4 g/dL (3.5-5.0); Albumin Globulin Ratio 1.3 (1.0-2.8); Alkaline Phosphatase 103 U/L (38-126); Aspartate Aminotransferase 67 IU/L (14-36); BUN Creatinine Ratio 14.9 (6-22); Bilirubin Total 1.2 mg/dL (0.2-1.3); Blood Urea Nitrogen 10 mg/dL (7-17); Calcium 9.1 mg/dL (8.4-10.2); Carbon Dioxide 26 mmol/L (22-32); Chloride 102 mmol/L (98-107); Estimated Glomerular Filt Rate > 60 mL/min (>60); Globulin 3.5 g/dL (1.7-4.1); Glucose 141 mg/dL (70-100); HEMOLYSIS < 15 (0-50); Potassium 3.9 mmol/L (3.4-5.1); Sodium 138 mmol/L (137-145); Total Protein 7.9 g/dL (6.3-8.2)
[2022-07-01 06:59] LABS: Add Manual Diff / Slide Review NO; Basophils Absolute Auto 100 /uL (0-100); Basophils Percent Auto 0.3 % (0-2); Eosinophils Absolute Auto 0 /uL (0-450); Hemoglobin 16.3 g/dL (12.0-16.0); Lymphocytes Absolute Auto 900 /uL (1100-4500); Lymphocytes Percent Auto 4.2 % (25-40); Mean Corpuscular HGB Conc 34.6 % (30-36); Mean Corpuscular Hemoglobin 32.4 PG (26-34); Mean Corpuscular Volume 93.5 fL (80-100); Monocytes Absolute Auto 500 /uL (0-900); Monocytes Percent Auto 2.4 % (3-14); Neutrophils Absolute Auto 20700 /uL (1500-7000); Neutrophils Percent Auto 93.1 % (50-75); Platelet Count 374 X10^3/uL (150-400); Red Blood Cell Count 5.03 X10^6/uL (4.0-5.2); Red Cell Distribution Width 12.1 % (11.6-14.8); White Blood Cell Count 22.2 X10^3/uL (4.5-11.0)
[2022-07-01 08:00] VITALS: BP 109/63; PULSE 91; RESP 16; TEMP 36.5; O2SAT 100
[2022-07-01] MEDS: SODIUM CHLORIDE 0.9% FLUSH 10 ML IV (08:52)
--- NOTE | 2022-07-01 10:15 | PC.NURSE ---
Day Shift Pt had a complaint of a headache and migraine, refused Tylenol PRN, refused caffeine, turned off lights, gave a ice pack applied to forehead, and cool washcloth to face to aid in headache relief.
--- NOTE | 2022-07-01 11:34 | PM.PN.1 ---
Subjective Subjective Date Patient Seen: 07/01/22 Time Patient Seen: 11:35 Interval history: Feeling slightly better today. Still some twinges of pain on the right side. Able to tolerate some diet Exam Vital Signs (past 8 hours): - 07/01/22 08:00 Temperature 97.7 F Pulse Rate 91 H Respiratory Rate 16 Blood Pressure 109/63 Pulse Oximetry 100 Oxygen Flow Rate 0 Oxygen Delivery Method Room Air Oxygen Flow Rate 0 Narrative Exam Narrative: Abdomen soft, incisions are well healed Objective Labs Result Diagrams: 07/01/22 05:48 07/01/22 05:48 Labs: Laboratory Results - last 24 hr 07/01/22 07/01/22 05:48 05:48 WBC 22.2 H RBC 5.03 Hgb 16.3 H Hct 47.0 H MCV 93.5 MCH 32.4 MCHC 34.6 RDW 12.1 Plt Count 374 Neut % (Auto) 93.1 H Lymph % (Auto) 4.2 L [place] % (Auto) 2.4 L Eos % (Auto) 0.0 L Baso % (Auto) 0.3 Neut # (Auto) 31977 H Lymph # (Auto) 900 L [place] # (Auto) 500 Eos # (Auto) 0 Baso # (Auto) 100 Sodium 138 Potassium 3.9 Chloride 102 Carbon Dioxide 26 BUN 10 Creatinine 0.67 Estimated GFR > 60 BUN/Creatinine Ratio 14.9 Glucose 141 H Calcium 9.1 Total Bilirubin 1.2 AST 67 H ALT 78 H Alkaline Phosphatase 103 Total Protein 7.9 Albumin 4.4 Globulin 3.5 Albumin/Globulin Ratio 1.3 [facility] Medical History (Updated 07/01/22 @ 11:35 by Antione Barnes MD) Difficult intravenous access Globus syndrome (~2020) Laryngopharyngeal reflux (~2020) Pancreatitis Pharyngoesophageal dysphagia (~2020) Surgical History History of lithotripsy History of third molar tooth extraction Status post delivery (11/03/00) Status post delivery (02/03/06) Status post endometrial ablation Status post LASIK surgery Family History Grandfather Type II diabetes mellitus Parkinson's disease Grandfather Type II diabetes mellitus Multiple sclerosis Social History household members: spouse Smoking Status: Never smoker second hand exposure: No alcohol intake: never substance use type: does not use Assessment & Plan Assessment and plan (1) Postoperative examination: Status: Acute Plan Doing well Home today she if her pain is controlled with oral agents Time Spent With Patient Critical Care time: I spent a total of [] minutes of critical care time on this patient's care today; this time is exclusive of procedural time. Quality VTE Deep Vein Thrombosis/Pulmonary Embolism Present on Admission: No
--- NOTE | 2022-07-01 12:43 | PC.NURSE ---
Day shift: Pt left unit at approx 1220. Left via WC and Guerrero GARZA helped her to car. Spouse is driving Pt home today. Lap sites remain CDI. Paperwork signed and all questions answered. Pt has all personal belongings. scripts sent electronic to Pt's pharmacy.
== END 2022-07-01 12:44 | disposition home or self-care (01) ==
LOC: OR 15:02 → AC 16:19
PROVIDERS: PCP Student in an Organized Health Care Education/Training Program; Referring Provider Surgery; Visit Provider Surgery
PROC: 0FT44ZZ Resection of Gallbladder, Percutaneous Endoscopic Approach (ICD-10-PCS; CPT 47562; principal; 2022-06-30 11:15)
DX: K80.10 Calculus of gallbladder with chronic cholecystitis without obstruction (principal); Z20.822 Contact with and (suspected) exposure to COVID-19
CPT/HCPCS: 47562; 36415; 36592; 80053; 85025; 87635; C9803; J0330; J0690; J1100; J1170; J2405; J2704; J3010

== ENCOUNTER → 2022-07-08 16:18 | Outpatient (CLI) | payer OTHER, SELFPAY ==
[2022-06-30 16:21] VITALS: BMI 31.3
[2022-07-08 17:46] LABS: Add Manual Diff / Slide Review NO; Basophils Absolute Auto 100 /uL (0-100); Basophils Percent Auto 0.7 % (0-2); Eosinophils Absolute Auto 100 /uL (0-450); Eosinophils Percent Auto 1.2 % (2-4); Hematocrit 46.7 % (36-46); Hemoglobin 16.5 g/dL (12.0-16.0); Lymphocytes Absolute Auto 2200 /uL (1100-4500); Lymphocytes Percent Auto 22.2 % (25-40); Mean Corpuscular HGB Conc 35.3 % (30-36); Mean Corpuscular Hemoglobin 32.7 PG (26-34); Mean Corpuscular Volume 92.5 fL (80-100); Monocytes Absolute Auto 500 /uL (0-900); Monocytes Percent Auto 5.4 % (3-14); Neutrophils Absolute Auto 7100 /uL (1500-7000); Neutrophils Percent Auto 70.5 % (50-75); Platelet Count 377 X10^3/uL (150-400); Red Blood Cell Count 5.05 X10^6/uL (4.0-5.2); Red Cell Distribution Width 12.1 % (11.6-14.8); White Blood Cell Count 10.1 X10^3/uL (4.5-11.0)
[2022-07-08 17:58] LABS: Alanine Aminotransferase 24 IU/L (<35); Albumin 4.4 g/dL (3.5-5.0); Albumin Globulin Ratio 1.3 (1.0-2.8); Alkaline Phosphatase 119 U/L (38-126); Aspartate Aminotransferase 25 IU/L (14-36); BUN Creatinine Ratio 16.7 (6-22); Bilirubin Total 0.7 mg/dL (0.2-1.3); Blood Urea Nitrogen 11 mg/dL (7-17); Calcium 9.2 mg/dL (8.4-10.2); Carbon Dioxide 26 mmol/L (22-32); Chloride 102 mmol/L (98-107); Estimated Glomerular Filt Rate > 60 mL/min (>60); Globulin 3.4 g/dL (1.7-4.1); Glucose 102 mg/dL (70-100); HEMOLYSIS 21 (0-50); Lipase 99 U/L (23-300); Potassium 4.1 mmol/L (3.4-5.1); Sodium 139 mmol/L (137-145); Total Protein 7.8 g/dL (6.3-8.2)
== END ==
PROVIDERS: PCP Student in an Organized Health Care Education/Training Program; Referring Provider Surgery; Visit Provider Surgery
DX: Z09 Encounter for follow-up examination after completed treatment for conditions other than malignant neoplasm (principal)
CPT/HCPCS: 36415; 80053; 83690; 85025

== ENCOUNTER → 2022-07-09 06:42 | Outpatient (CLI) | payer OTHER, SELFPAY ==
[2022-06-30 16:21] VITALS: BMI 31.3
--- NOTE | 2022-07-09 06:42 | DI.US.S_ITS ---
PROCEDURE: US ABDOMEN LIMITED INDICATIONS: abdominal pain TECHNIQUE: Real-time focused scanning was performed of the abdomen, with image documentation. COMPARISON: [facility], , US ABDOMEN LIMITED, 06/09/2022, 17:07. FINDINGS: The liver is normal in size and demonstrates no suspicious lesions. Status post cholecystectomy. No abnormalities of the cholecystectomy bed can be seen. No fluid collections or abnormal vascularity can be seen. There is no biliary dilatation, the common bile duct measures 5 mm. No significant pancreatic abnormality is seen on these images. The IVC is patent. IMPRESSION: Status post cholecystectomy, without abnormalities of the cholecystectomy bed. Dictated by: Tray Light M.D. on 07/09/2022 at 9:07 Approved by: Tray Light M.D. on 07/09/2022 at 9:08
== END ==
PROVIDERS: PCP Student in an Organized Health Care Education/Training Program; Referring Provider Surgery; Visit Provider Surgery
DX: Z09 Encounter for follow-up examination after completed treatment for conditions other than malignant neoplasm (principal); Z90.49 Acquired absence of other specified parts of digestive tract
CPT/HCPCS: 76705

== ENCOUNTER → 2022-08-14 13:25 | Outpatient (CLI) | payer OTHER, SELFPAY ==
[2022-06-30 16:21] VITALS: BMI 31.3
--- NOTE | 2022-08-14 13:25 | DI.MG.S_ITS ---
UNILATERAL LEFT DIGITAL DIAGNOSTIC MAMMOGRAM 3D/2D: 08/14/2022 CLINICAL: Short term follow up for the left breast. Comparison is made to exams dated: 02/06/2022 mammogram, 12/31/2021 mammogram, 11/08/2020 ultrasound, 11/08/2020 mammogram, and 09/28/2019 mammogram - [facility]. The left breast is extremely dense, which lowers the sensitivity of mammography (category d />75% glandular tissue). There are stable grouped fine and punctate calcifications in the left breast at 1 o'clock posterior depth. These are seen in additional views. There also is a stable marker clip with fine calcifications in the left breast at 1 o'clock middle depth. This ribbon marker clip is at the biopsy site. No other significant masses or calcifications are seen in the breast. IMPRESSION: PROBABLY BENIGN Stable grouped fine and punctate calcifications in the left breast at 1 o'clock posterior depth are probably benign. These had previously increased. These calcifications are similar and adjacent to the benign calcifications which were previously biopsied. A follow-up mammogram in 6 months is recommended to demonstrate stability. Patient will be due for right mammogram at that time. Exam findings were conveyed to the patient. This exam was interpreted at Station ID: [id number]. NOTE: For mammograms, a report in lay terms will be sent to the patient. Approximately 15% of breast malignancies will not be visualized mammographically. In the management of a palpable breast mass, a negative mammogram must not discourage biopsy of a clinically suspicious lesion. Electronically Signed By: Ernie Wilks M.D. slc/:08/14/2022 14:00:24 letter sent: Followup Recommended ACR BI-RADS Category 3: Probably benign 3343F
== END ==
PROVIDERS: PCP Student in an Organized Health Care Education/Training Program; Referring Provider Student in an Organized Health Care Education/Training Program; Visit Provider Student in an Organized Health Care Education/Training Program
DX: R92.8 Other abnormal and inconclusive findings on diagnostic imaging of breast (principal); R92.1 Mammographic calcification found on diagnostic imaging of breast
CPT/HCPCS: 77065; G0279

== ENCOUNTER → 2022-11-30 06:43 | Outpatient (CLI) | payer OTHER, SELFPAY ==
[2022-06-30 16:21] VITALS: BMI 31.3
--- NOTE | 2022-11-30 06:44 | DI.US.S_ITS ---
PROCEDURE: US PELVIC COMPLETE INDICATIONS: PAIN TECHNIQUE: Real-time scanning was performed of the pelvic organs, with image documentation. Additional endovaginal scanning was necessary due to incomplete visualization of the adnexal and endometrial structures by transabdominal scanning. COMPARISON: [facility], US, US PELVIC COMPLETE, 12/17/2020, 16:27. FINDINGS: Uterus: Uterus is anteverted and normal in size at 6.5 x 3.7 x 5.8 cm. The myometrium is homogeneous. The endometrium measures 8 mm combined thickness. There is a solid, hypoechoic mass abutting the posterior endometrial stripe and the upper 3rd of the uterus. This measures 0.9 x 0.8 x 1.1 cm. Ovaries: The right ovary measures 1.9 x 1.6 x 1.6 cm, with a calculated ovarian volume of 2.5 cc. The left ovary measures 2.1 x 2.3 x 1.5 cm, with a calculated ovarian volume of 3.8 cc. The ovaries have a normal sonographic appearance. No adnexal masses are seen. Other: No pathologic free abdominal or pelvic fluid. IMPRESSION: 1. Endometrial stripe measures 8 mm, likely indicating some degree of regeneration. 2. 1.1 cm hypoechoic mass within the myometrium with a small submucosal interface, presumably a fibroid. We strive to produce accurate, complete, and clear reports of imaging services. To assist us in improving patient care, this report was composed using standard report templates and voice recognition software. Therefore, it may contain abnormal punctuation, insertions and/or omissions. Occasional wrong-word or sound-alike substitutions may occur. Though we review the report and make efforts to correct it, we do recommend that the report be read carefully in proper context to recognize any text inaccuracies. Dictated by: Timbo Quiroz M.D. on 11/30/2022 at 9:46 Approved by: Timbo Quiroz M.D. on 11/30/2022 at 9:58
== END ==
PROVIDERS: PCP Student in an Organized Health Care Education/Training Program; Referring Provider Obstetrics & Gynecology; Visit Provider Obstetrics & Gynecology
DX: N94.89 Other specified conditions associated with female genital organs and menstrual cycle (principal)
CPT/HCPCS: 76830; 76856; 93975

== ENCOUNTER → 2023-02-23 09:19 | Outpatient (CLI) | payer OTHER, SELFPAY ==
[2022-06-30 16:21] VITALS: BMI 31.3
--- NOTE | 2023-02-23 09:19 | DI.MG.S_ITS ---
BILATERAL DIGITAL DIAGNOSTIC MAMMOGRAM 3D/2D SHORT-TERM FOLLOW-UP: 02/23/2023 CLINICAL: Short term follow up of the left breast, due for bilateral imaging. Left breast lump. Comparison is made to exams dated: 08/14/2022 mammogram - [facility], 02/16/2022 stereotactic biopsy - [facility], 02/06/2022 mammogram, 12/31/2021 mammogram, and 11/08/2020 mammogram - [facility]. Both breasts are extremely dense, which lowers the sensitivity of mammography (category d />75% glandular tissue). There are stable grouped fine punctate calcifications in the left breast at 1 o'clock posterior depth. These are seen in additional views. No other significant masses, calcifications, or other findings are seen in either breast. IMPRESSION: INCOMPLETE: NEEDS ADDITIONAL IMAGING EVALUATION The stable grouped fine punctate calcifications in the left breast are probably benign. 12 month follow up mammogram recommended to ensure stability. There is no mammographic abnormality seen in the left breast to correspond with the palpable abnormality at 1 o'clock, however, ultrasound is recommended. Based on the Tyrer Cuzick model (a risk assessment model) the patient's lifetime risk is 16.1% and her 10 year risk is 3.2%. According to the ACR, ACS, and NCCN guidelines, an annual breast MRI exam along with mammogram is recommended if the patient's lifetime risk is 20% or greater. This exam was interpreted at Station ID: [id number]. NOTE: For mammograms, a report in lay terms will be sent to the patient. Approximately 15% of breast malignancies will not be visualized mammographically. In the management of a palpable breast mass, a negative mammogram must not discourage biopsy of a clinically suspicious lesion. Electronically Signed By: Tonja Mayorga M.D. lk/:02/23/2023 10:14:09 letter sent: Additional Imaging Needed ACR BI-RADS Category 0: Incomplete 3340F
== END ==
PROVIDERS: PCP Student in an Organized Health Care Education/Training Program; Referring Provider Student in an Organized Health Care Education/Training Program; Visit Provider Student in an Organized Health Care Education/Training Program
DX: R92.8 Other abnormal and inconclusive findings on diagnostic imaging of breast (principal); R92.1 Mammographic calcification found on diagnostic imaging of breast
CPT/HCPCS: 77066; G0279

== ENCOUNTER → 2023-03-01 09:13 | Outpatient (CLI) | payer OTHER, SELFPAY ==
[2022-06-30 16:21] VITALS: BMI 31.3
--- NOTE | 2023-03-01 09:13 | DI.US.S_ITS ---
LIMITED ULTRASOUND OF LEFT BREAST: 03/01/2023 CLINICAL: Pain in Left Breast; new finding. Comparison is made to exams dated: 02/23/2023 mammogram, 08/14/2022 mammogram - [facility], 02/16/2022 specimen, 02/16/2022 stereotactic biopsy, 02/16/2022 specimen - [facility], and 12/31/2021 mammogram - [facility]. Color flow and real-time ultrasound of the left breast 1 o'clock region were performed. Matias scale images of the real-time examination were reviewed. There is a 0.5 cm x 0.4 cm x 0.4 cm oval cyst in the left breast at 1 o'clock posterior depth 7 cm from the nipple. This oval cyst is hypoechoic. This is in the region of the patient reported palpable abnormality. Color flow imaging demonstrates that there is no vascularity present. IMPRESSION: PROBABLY BENIGN The 0.5 cm oval cyst in the left breast is probably benign. A follow-up ultrasound in 6 months is recommended to demonstrate stability. Exam findings were conveyed to the patient. Patient is advised to monitor for significant change. Clinical follow-up as needed. This exam was interpreted at Station ID: [id number]. Electronically Signed By: Ernie Wilks M.D. slc/:03/01/2023 10:02:51 letter sent: Followup Recommended Ultrasound BI-RADS: 3 Probably benign
== END ==
PROVIDERS: PCP Student in an Organized Health Care Education/Training Program; Referring Provider Student in an Organized Health Care Education/Training Program; Visit Provider Student in an Organized Health Care Education/Training Program
DX: R92.8 Other abnormal and inconclusive findings on diagnostic imaging of breast (principal); N60.02 Solitary cyst of left breast
CPT/HCPCS: 76642

== ENCOUNTER → 2023-04-06 09:57 | Outpatient (CLI) | payer OTHER, SELFPAY ==
[2022-06-30 16:21] VITALS: BMI 31.3
[2023-04-06 12:29] LABS: Appearance Urine UA SL CLOUDY; Bilirubin Urine UA NEGATIVE (NEGATIVE); Color Urine UA YELLOW; Glucose Urine UA NEGATIVE (Negative); Ketones Urine UA NEGATIVE (NEGATIVE); Leukocyte Esterase Urine UA TRACE (NEGATIVE); Nitrite Urine UA NEGATIVE (Negative); Occult Blood Urine UA NEGATIVE (Negative); Protein Urine UA NEGATIVE (Negative); Urobilinogen Urine UA 0.2 E.U./dL (0.2)
[2023-04-06 12:57] LABS: Amorphous Sediment Urine 2+; Bacteria Urine Few (2-10); Culture Indicated Urine Specimen Cultured; Mucus Urine 1+ (Negative); RBC Urine None Seen (0-5/HPF); Squamous Epithelial Cell Urine 5-10 /HPF (0-5/HPF); WBC Urine 1-5/HPF (0-5/HPF)
== END ==
PROVIDERS: PCP Pediatrics; Referring Provider Pediatrics; Visit Provider Pediatrics
DX: E66.9 Obesity, unspecified (principal); F32.9 Major depressive disorder, single episode, unspecified; G47.01 Insomnia due to medical condition; G89.29 Other chronic pain; Z98.890 Other specified postprocedural states; M79.7 Fibromyalgia
CPT/HCPCS: 81001; 87077; 87086; 87147; 87186

== ENCOUNTER → 2023-04-07 08:43 | Outpatient (CLI) | payer OTHER, SELFPAY ==
[2022-06-30 16:21] VITALS: BMI 31.3
[2023-04-07 11:16] LABS: Add Manual Diff / Slide Review NO; Basophils Absolute Auto 0 /uL (0-100); Basophils Percent Auto 0.6 % (0-2); Eosinophils Absolute Auto 100 /uL (0-450); Eosinophils Percent Auto 1.1 % (2-4); Hematocrit 48.4 % (36-46); Hemoglobin 16.9 g/dL (12.0-16.0); Lymphocytes Absolute Auto 2200 /uL (1100-4500); Lymphocytes Percent Auto 28.7 % (25-40); Mean Corpuscular Hemoglobin 32.7 PG (26-34); Mean Corpuscular Volume 93.4 fL (80-100); Monocytes Absolute Auto 500 /uL (0-900); Monocytes Percent Auto 5.9 % (3-14); Neutrophils Absolute Auto 4900 /uL (1500-7000); Neutrophils Percent Auto 63.7 % (50-75); Platelet Count 353 X10^3/uL (150-400); Red Blood Cell Count 5.18 X10^6/uL (4.0-5.2); Red Cell Distribution Width 11.9 % (11.6-14.8); White Blood Cell Count 7.7 X10^3/uL (4.5-11.0)
[2023-04-07 11:39] LABS: Erythrocyte Sedimentation Rate 3 MM/HR (0-20)
[2023-04-07 11:46] LABS: HEMOLYSIS < 15 (0-50); Iron 131 ug/dL (37-170)
[2023-04-07 11:52] LABS: Alanine Aminotransferase 20 IU/L (<35); Albumin 4.4 g/dL (3.5-5.0); Albumin Globulin Ratio 1.5 (1.0-2.8); Alkaline Phosphatase 114 U/L (38-126); Aspartate Aminotransferase 23 IU/L (14-36); BUN Creatinine Ratio 16.7 (6-22); Bilirubin Total 0.7 mg/dL (0.2-1.3); Blood Urea Nitrogen 12 mg/dL (7-17); C-Reactive Protein Quant < 0.5 mg/dL (<1.0); Calcium 9.3 mg/dL (8.4-10.2); Carbon Dioxide 26 mmol/L (22-32); Chloride 100 mmol/L (98-107); Creatine Kinase 65 U/L (30-135); Estimated Glomerular Filt Rate > 60 mL/min (>60); Globulin 2.9 g/dL (1.7-4.1); Glucose 117 mg/dL (70-100); HEMOLYSIS < 15 (0-50); Potassium 4.2 mmol/L (3.4-5.1); Sodium 137 mmol/L (137-145); Total Protein 7.3 g/dL (6.3-8.2)
[2023-04-07 11:56] LABS: Progesterone, Total 8.83 ng/mL
[2023-04-07 11:57] LABS: Percent Iron Saturation 41 % (15-50); Total Iron Binding Capacity 321 ug/dL (265-497); Transferrin 236 mg/dL (206-381)
[2023-04-07 12:12] LABS: Cortisol AM (Before 10AM) 12.2 ug/dL (4.46-22.7)
[2023-04-13 17:06] LABS: ANA Screen, IFA Negative (.)
== END ==
PROVIDERS: PCP Pediatrics; Referring Provider Pediatrics; Visit Provider Pediatrics
DX: E66.9 Obesity, unspecified (principal); F32.9 Major depressive disorder, single episode, unspecified; G47.01 Insomnia due to medical condition; G89.29 Other chronic pain; M79.7 Fibromyalgia; Z98.890 Other specified postprocedural states; Z83.49 Family history of other endocrine, nutritional and metabolic diseases
CPT/HCPCS: 36415; 80053; 82533; 82550; 83520; 83540; 83550; 84144; 85025; 85651; 86038; 86140

== ENCOUNTER → 2023-05-20 07:07 | Outpatient (CLI) | payer OTHER, SELFPAY ==
[2022-06-30 16:21] VITALS: BMI 31.3
--- NOTE | 2023-05-20 07:08 | DI.US.S_ITS ---
PROCEDURE: US ABDOMEN LIMITED INDICATIONS: Polycthemia, assess for splenomegaly TECHNIQUE: Real-time scanning was performed of the abdominal and retroperitoneal organs, with image documentation. Color and pulse Doppler interrogation was also performed of the hepatic and splenic vessels, or of the lesion of interest. COMPARISON: [facility], US, US ABDOMEN LIMITED, 07/09/2022, 6:51. FINDINGS: Liver: Homogeneous echotexture. No evidence of focal mass lesion. No intra hepatic biliary ductal dilatation Gallbladder: Cholecystectomy Common Bile Duct: 5 mm. Spleen: Spleen measures 10.6 cm, and is appropriate echotexture Pancreas: Unremarkable as visualized IMPRESSION: 1. Unremarkable ultrasound appearance of the spleen. Cholecystectomy. Approved by: Neptali Sepulveda M.D. on 05/20/2023 at 21:20
== END ==
PROVIDERS: PCP Pediatrics; Referring Provider Internal Medicine Hematology & Oncology; Visit Provider Internal Medicine Hematology & Oncology
DX: D75.1 Secondary polycythemia (principal); Z90.49 Acquired absence of other specified parts of digestive tract
CPT/HCPCS: 76705

== ENCOUNTER → 2023-05-21 10:41 | Outpatient (CLI) | payer OTHER, SELFPAY ==
[2022-06-30 16:21] VITALS: BMI 31.3
[2023-05-21 11:25] LABS: Appearance Urine UA CLOUDY; Bilirubin Urine UA NEGATIVE (NEGATIVE); Color Urine UA YELLOW; Glucose Urine UA NEGATIVE (Negative); Ketones Urine UA NEGATIVE (NEGATIVE); Leukocyte Esterase Urine UA NEGATIVE (NEGATIVE); Nitrite Urine UA NEGATIVE (Negative); Occult Blood Urine UA NEGATIVE (Negative); Protein Urine UA NEGATIVE (Negative); Urobilinogen Urine UA 0.2 E.U./dL (0.2)
[2023-05-21 11:38] LABS: pH Urine UA 6.5 (4.5-8.0)
[2023-05-21 11:39] LABS: Amorphous Sediment Urine 3+; Bacteria Urine None Seen; Culture Indicated Urine Cult Not Indicated; RBC Urine None Seen (0-5/HPF); Squamous Epithelial Cell Urine None Seen (0-5/HPF); WBC Urine None Seen (0-5/HPF)
[2023-05-24 10:08] LABS: Fecal Immunochemical Test Negative (Negative)
== END ==
PROVIDERS: Student in an Organized Health Care Education/Training Program; PCP Pediatrics; Referring Provider Pediatrics; Visit Provider Pediatrics
DX: Z12.11 Encounter for screening for malignant neoplasm of colon (principal); R82.90 Unspecified abnormal findings in urine
CPT/HCPCS: 81001; 82274

== ENCOUNTER → 2023-09-07 08:40 | Outpatient (CLI) | payer OTHER, SELFPAY ==
[2022-06-30 16:21] VITALS: BMI 31.3
--- NOTE | 2023-09-07 | DI.MG.S_ITS ---
UNILATERAL RIGHT DIGITAL DIAGNOSTIC MAMMOGRAM 3D/2D: 09/07/2023 CLINICAL: Right breast lump. Comparison is made to exams dated: 03/01/2023 ultrasound, 02/23/2023 mammogram, 08/14/2022 mammogram - [facility], and 02/16/2022 specimen - [facility]. The right breast is extremely dense, which lowers the sensitivity of mammography (category d />75% glandular tissue). There is a 0.5 cm x 0.7 cm oval cyst in the right breast posterior depth inferior region seen on the mediolateral oblique view only 8 cm from the skin. No other significant masses or calcifications are seen in the breast. IMPRESSION: INCOMPLETE: NEEDS ADDITIONAL IMAGING EVALUATION The 0.5 cm x 0.7 cm oval cyst in the right breast is indeterminate. An ultrasound is recommended. An ultrasound of the left breast which is due from prior findings 6 months ago is also being performed today. Based on the Tyrer Cuzick model (a risk assessment model) the patient's lifetime risk is 16.0% and her 10 year risk is 3.3%. According to the ACR, ACS, and NCCN guidelines, an annual breast MRI exam along with mammogram is recommended if the patient's lifetime risk is 20% or greater. This exam was interpreted at Station ID: [id number]. NOTE: For mammograms, a report in lay terms will be sent to the patient. Approximately 15% of breast malignancies will not be visualized mammographically. In the management of a palpable breast mass, a negative mammogram must not discourage biopsy of a clinically suspicious lesion. Electronically Signed By: Flaquito Adames M.D. acr/:09/07/2023 09:30:53 letter sent: Normal Exam ACR BI-RADS Category 0: Incomplete 3340F
--- NOTE | 2023-09-07 08:41 | DI.US.S_ITS ---
COMPLETE ULTRASOUND OF RIGHT BREAST: 09/07/2023 CLINICAL: Palpable right breast lump. Comparison is made to exams dated: 09/07/2023 mammogram, 03/01/2023 ultrasound, 02/23/2023 mammogram, 08/14/2022 mammogram - [facility], 02/16/2022 specimen, and 02/16/2022 stereotactic biopsy - [facility]. Color flow and real-time ultrasound of the right breast four quadrants and retroareolar regions were performed. No abnormality which corresponds with the palpable abnormality is seen. IMPRESSION: NEGATIVE There is no sonographic evidence of malignancy. There is no abnormality seen in the right breast to correspond with the area of clinical concern and palpable abnormality, however, clinical followup is recommended. Return to annual mammogram screening schedule is recommended. Note that bilateral screen in due in february 2024. This exam was interpreted at Station ID: [id number]. Electronically Signed By: Flaquito Adames M.D. acr/:09/07/2023 10:08:06 letter sent: Normal Exam Ultrasound BI-RADS: 1 Negative
--- NOTE | 2023-09-07 08:41 | DI.US.S_ITS ---
PROCEDURE: BREAST LT LIMITED COMPARISON: [facility], BREAST LT LIMITED, 03/01/2023, 9:24. INDICATIONS: BREAST LUMP FINDINGS: IMPRESSION: Dictated by: Flaquito Adames M.D. on 09/07/2023 at 10:09 Approved by: Flaquito Adames M.D. on 09/07/2023 at 10:12
--- NOTE | 2023-09-07 09:41 | DI.US.S_ITS ---
Patient Name: ROYER WHITTINGTON date: 1975 Sex: F Attending Physician: Laci Indications: Date: 09/07/2023 10:12 At the request of: SNOW AYOUB Procedure: US breast LT limited LIMITED ULTRASOUND OF LEFT BREAST: 09/07/2023 CLINICAL: 6 month follow-up of cysts. Comparison is made to exams dated: 09/07/2023 mammogram, 03/01/2023 ultrasound, 02/23/2023 mammogram, 08/14/2022 mammogram - [facility], 02/16/2022 specimen, and 02/16/2022 stereotactic biopsy - [facility]. Color flow and real-time ultrasound of the left breast were performed. There is a stable benign 0.5 cm x 0.4 cm x 0.4 cm oval cyst in the left breast at 1 o'clock posterior depth 7 cm from the nipple. This oval cyst is hypoechoic. This correlates as palpated. Color flow imaging demonstrates that there is no vascularity present. IMPRESSION: BENIGN There is no sonographic evidence of malignancy. The stable 0.5 cm x 0.4 cm x 0.4 cm oval cyst in the left breast is consistent with a simple cyst and is benign. Return to annual mammogram screening schedule is recommended. Future imaging is recommended as follows: 02/29/2024 bilateral screening mammogram. This exam was interpreted at Station ID: [id number]. Electronically Signed By: Flaquito Adames M.D. acr/:09/07/2023 10:12:04 Continued Report - Page 2 of 2 Patient Name: ROYER WHITTINGTON date: 1975 Sex: F Attending Physician: Laci Indications: Date: 09/07/2023 10:12 At the request of: SNOW AYOUB Procedure: US breast LT limited letter sent: Normal Exam Ultrasound BI-RADS: 2 Benign
== END ==
PROVIDERS: PCP Pediatrics; Referring Provider Pediatrics; Visit Provider Pediatrics
DX: N63.0 Unspecified lump in unspecified breast (principal); R92.8 Other abnormal and inconclusive findings on diagnostic imaging of breast; N64.4 Mastodynia; N60.02 Solitary cyst of left breast
CPT/HCPCS: 76642; 77065; G0279

== ENCOUNTER → 2023-12-01 15:39 | Outpatient (CLI) | payer OTHER, SELFPAY ==
[2022-06-30 16:21] VITALS: BMI 31.3
== END ==
PROVIDERS: PCP Family Medicine; Visit Provider Physician Assistant
DX: R30.0 Dysuria (principal)
CPT/HCPCS: 87077; 87086; 87185; 87186

== ENCOUNTER → 2024-01-17 09:25 | Outpatient (CLI) | payer OTHER, SELFPAY ==
[2022-06-30 16:21] VITALS: BMI 31.3
--- NOTE | 2024-01-17 09:26 | DI.MG.S_ITS ---
BILATERAL DIGITAL DIAGNOSTIC MAMMOGRAM 3D/2D: 01/17/2024 CLINICAL: Right breast lump. Comparison is made to exams dated: 09/07/2023 mammogram, 02/23/2023 mammogram, 08/14/2022 mammogram, and 12/31/2021 mammogram - [facility]. Both breasts are extremely dense, which lowers the sensitivity of mammography (category d />75% glandular tissue). No significant masses, calcifications, or other findings are seen in either breast. No mass seen at the right breast palpable site. Left breast scar marker. Left breast biopsy clip. IMPRESSION: INCOMPLETE: NEEDS ADDITIONAL IMAGING EVALUATION No mammographic evidence of malignancy. A targeted ultrasound is recommended and will immediately follow. Based on the Tyrer Cuzick model (a risk assessment model) the patient's lifetime risk is 16.0% and her 10 year risk is 3.3%. According to the ACR, ACS, and NCCN guidelines, an annual breast MRI exam along with mammogram is recommended if the patient's lifetime risk is 20% or greater. This exam was interpreted at Station ID: [id number]. NOTE: For mammograms, a report in lay terms will be sent to the patient. Approximately 15% of breast malignancies will not be visualized mammographically. In the management of a palpable breast mass, a negative mammogram must not discourage biopsy of a clinically suspicious lesion. Electronically Signed By: Ernie Wilks M.D. slc/:01/17/2024 10:31:07 ACR BI-RADS Category 0: Incomplete 3340F
--- NOTE | 2024-01-17 09:26 | DI.US.S_ITS ---
LIMITED ULTRASOUND OF RIGHT BREAST: 01/17/2024 CLINICAL: Patient returns today to evaluate a focal asymmetry in the right breast. Comparison is made to exams dated: 01/17/2024 mammogram, 09/07/2023 ultrasound, 09/07/2023 ultrasound, 09/07/2023 mammogram, 03/01/2023 ultrasound, and 02/23/2023 mammogram - [facility]. Real-time ultrasound of the right breast 10 o'clock region was performed. Matias scale images of the real-time examination were reviewed. No significant abnormalities were seen sonographically in the right breast. IMPRESSION: NEGATIVE No sonographic evidence of malignancy in the region of the palpable abnormality. A 1 year screening mammogram is recommended. Exam findings were conveyed to the patient. Patient is advised to monitor for significant change. Clinical follow-up as needed. This exam was interpreted at Station ID: [id number]. Electronically Signed By: Ernie Wilks M.D. slc/:01/17/2024 11:10:20 letter sent: Normal Exam Ultrasound BI-RADS: 1 Negative
== END ==
LOC: MAMMO 09:25
PROVIDERS: PCP Family Medicine; Referring Provider Family Medicine; Visit Provider Family Medicine
DX: R92.2 Inconclusive mammogram (principal); N63.10 Unspecified lump in the right breast, unspecified quadrant; R92.343 Mammographic extreme density, bilateral breasts
CPT/HCPCS: 76642; 77066; G0279

== ENCOUNTER → 2024-04-13 13:35 | Outpatient (CLI) | payer OTHER, SELFPAY ==
[2022-06-30 16:21] VITALS: BMI 31.3
--- NOTE | 2024-04-13 13:37 | DI.RAD.S_ITS ---
PROCEDURE: XR CHEST 2V INDICATIONS: cough and fever TECHNIQUE: 2 views of the chest were acquired. COMPARISON: None. FINDINGS: Surgical changes and devices: None. Lungs and pleura: Lungs are clear. No pleural effusions or pneumothorax. Mediastinum: Mediastinal contours are normal. Heart size is normal. Bones and chest wall: No suspicious bony abnormalities. Soft tissues appear unremarkable. IMPRESSION: No acute cardiopulmonary abnormality is seen. Dictated by: Gino Upton M.D. on 04/13/2024 at 14:55 Approved by: Gino Upton M.D. on 04/13/2024 at 14:56
== END ==
PROVIDERS: PCP Family Medicine; Referring Provider Nurse Practitioner Family; Visit Provider Nurse Practitioner Family
DX: R05.9 Cough, unspecified (principal); R50.9 Fever, unspecified
CPT/HCPCS: 71046

== ENCOUNTER → 2024-04-20 14:37 | Outpatient (CLI) | payer OTHER, SELFPAY ==
[2022-06-30 16:21] VITALS: BMI 31.3
[2024-04-20 17:29] LABS: Influenza A - CEPHEID Flu A NEGATIVE (NEGATIVE); Influenza B - CEPHEID Flu B NEGATIVE (NEGATIVE); Respiratory Syncytial Virus Negative (Negative)
[2024-04-20 17:31] LABS: COVID-19 CEPHEID 4-PLEX PCR Negative (Negative)
== END ==
PROVIDERS: PCP Family Medicine; Visit Provider Physician Assistant
DX: R05.1 Acute cough (principal)
CPT/HCPCS: 0241U

== ENCOUNTER → 2024-05-03 16:51 | Outpatient (CLI) | payer OTHER, SELFPAY ==
[2022-06-30 16:21] VITALS: BMI 31.3
[2024-05-03 18:09] LABS: Monotest Negative (Negative)
== END ==
PROVIDERS: PCP Family Medicine; Referring Provider Physician Assistant; Visit Provider Physician Assistant
DX: R59.9 Enlarged lymph nodes, unspecified (principal)
CPT/HCPCS: 36415; 86318

== ENCOUNTER → 2024-06-03 12:42 | Outpatient (CLI) | payer OTHER, SELFPAY ==
[2024-06-01 13:23] VITALS: BMI 31.3
--- NOTE | 2024-06-03 12:43 | DI.CT.S_ITS ---
PROCEDURE: CT KIDNEY URETER BLADDER (KUB) INDICATIONS: Possible Kidney Stones TECHNIQUE: Axial sections were acquired from the lung bases to the pubic symphysis. Coronal and sagittal reformats were performed. For radiation dose reduction, the following was used: automated exposure control, adjustment of mA and/or kV according to patient size. COMPARISON: None. FINDINGS: Image quality: Diagnostic. Lower Chest: No significant findings. URINARY: Right Kidney: There are 3 nonobstructing stones within the right renal collecting system, the largest of which measures 5 mm and 429 HU. Right Ureter: No hydroureter. Left Kidney: No stones or hydronephrosis. Left Ureter: No hydroureter. Bladder: Normal wall thickness. No stones. ABDOMEN: Liver: No contour-deforming solid mass. Gallbladder: No radiopaque gallstones or wall thickening. Biliary ducts: No biliary dilation. Pancreas: No ductal dilation. Spleen: Size is within normal limits. Adrenal Glands: No adrenal nodules. Stomach and Bowel: Normal colonic caliber, without significant wall thickening. Peritoneum: No abnormal intraperitoneal fluid. No free air. Ventral Wall: No hernia. Abdominal Nodes: No enlarged retroperitoneal or mesenteric lymph nodes. Vessels: Aorta and inferior vena cava are normal in size. PELVIS: Pelvic Organs: Unremarkable. Pelvic Nodes: Unremarkable. Miscellaneous: No inguinal hernias are seen. Bones: Unremarkable. IMPRESSION: Non-obstructing right nephrolithiasis measuring up to 5 mm. Dictated by: Kendra Whyte M.D. on 06/03/2024 at 13:23 Approved by: Kendra Whyte M.D. on 06/03/2024 at 13:27
== END ==
LOC: CT 12:43
PROVIDERS: PCP Family Medicine; Referring Provider Family Medicine; Visit Provider Family Medicine
DX: N20.0 Calculus of kidney (principal); R10.9 Unspecified abdominal pain; Z87.442 Personal history of urinary calculi
CPT/HCPCS: 74176

== ENCOUNTER → 2024-08-04 07:38 | Outpatient (CLI) | payer OTHER, SELFPAY ==
[2024-06-01 13:23] VITALS: BMI 31.3
[2024-08-04 08:35] LABS: Basophils Absolute Auto 100 /uL (0-100); Basophils Percent Auto 0.8 % (0-2); Eosinophils Absolute Auto 200 /uL (0-450); Eosinophils Percent Auto 1.8 % (2-4); Hematocrit 47.8 % (36-46); Hemoglobin 16.5 g/dL (12.0-16.0); Lymphocytes Absolute Auto 2100 /uL (1100-4500); Lymphocytes Percent Auto 22.8 % (25-40); Mean Corpuscular HGB Conc 34.5 % (30-36); Mean Corpuscular Hemoglobin 32.1 PG (26-34); Monocytes Absolute Auto 600 /uL (0-900); Monocytes Percent Auto 6.2 % (3-14); Neutrophils Absolute Auto 6300 /uL (1500-7000); Neutrophils Percent Auto 68.4 % (50-75); Platelet Count 369 X10^3/uL (150-400); Red Blood Cell Count 5.14 X10^6/uL (4.0-5.2); Red Cell Distribution Width 12.5 % (11.6-14.8); White Blood Cell Count 9.2 X10^3/uL (4.5-11.0)
[2024-08-04 08:41] LABS: HEMOLYSIS < 15 (0-50)
[2024-08-04 08:50] LABS: Iron 96 ug/dL (37-170)
[2024-08-04 08:51] LABS: Add Manual Diff / Slide Review SLIDE REVIEW
[2024-08-04 08:53] LABS: RBC Morphology Normal Morphology
[2024-08-04 08:56] LABS: Alanine Aminotransferase 20 IU/L (<35); Albumin Globulin Ratio 1.4 (1.0-2.8); Alkaline Phosphatase 130 U/L (38-126); Aspartate Aminotransferase 24 IU/L (14-36); BUN Creatinine Ratio 15.1 (6-22); Bilirubin Total 0.8 mg/dL (0.2-1.3); Blood Urea Nitrogen 11 mg/dL (7-17); Calcium 9.5 mg/dL (8.4-10.2); Carbon Dioxide 28 mmol/L (22-32); Chloride 99 mmol/L (98-107); Cholesterol 186 mg/dL (140-199); Estimated Glomerular Filt Rate > 60 mL/min (>60); Globulin 2.9 g/dL (1.7-4.1); Glucose 118 mg/dL (70-100); HDL Cholesterol 46 mg/dL (40-60); HEMOLYSIS 20 (0-50); LDL Cholesterol Calculated 117 mg/dL (<100); Potassium 4.5 mmol/L (3.4-5.1); Sodium 134 mmol/L (137-145); Total Protein 6.9 g/dL (6.3-8.2); Triglycerides 116 mg/dL (35-150)
[2024-08-04 09:01] LABS: Percent Iron Saturation 32 % (15-50); Total Iron Binding Capacity 301 ug/dL (265-497); Transferrin 239 mg/dL (206-381)
[2024-08-04 09:17] LABS: TSH w/ Reflex to FT4 2.62 uIU/mL (0.47-4.68)
[2024-08-04 17:49] LABS: Vitamin B12 429 pg/mL (239-931)
[2024-08-08 19:12] LABS: Estrogen 260 pg/mL (.)
== END ==
PROVIDERS: PCP Family Medicine; Referring Provider Family Medicine; Visit Provider Family Medicine
DX: Z00.00 Encounter for general adult medical examination without abnormal findings (principal); G43.119 Migraine with aura, intractable, without status migrainosus; Z98.890 Other specified postprocedural states; K80.20 Calculus of gallbladder without cholecystitis without obstruction
CPT/HCPCS: 36415; 80053; 80061; 82607; 82627; 82672; 83498; 83540; 83550; 84443; 85025

== ENCOUNTER → 2024-12-18 14:58 | Outpatient (CLI) | payer OTHER, SELFPAY ==
[2024-06-01 13:23] VITALS: BMI 31.3
== END ==
PROVIDERS: PCP Family Medicine; Visit Provider Nurse Practitioner Family
DX: R30.0 Dysuria (principal)
CPT/HCPCS: 87077; 87086; 87186

== ENCOUNTER → 2025-02-08 08:40 | Outpatient (CLI) | payer OTHER, SELFPAY ==
[2024-06-01 13:23] VITALS: BMI 31.3
--- NOTE | 2025-02-08 08:41 | DI.MG.S_ITS ---
MM diagnostic mammo BI, US breast LT limited: 02/08/2025 BI-RADS: 2 CLINICAL: 49-year old female for bilateral diagnostic mammogram and left diagnostic breast ultrasound. Tyrer-Cuzick lifetime risk of 18.9%. No personal or first-degree family history of breast cancer. Current reported family history of breast cancer: maternal aunt. The patient reports a palpable abnormality (1 month) in the left breast. The patient had a prior left breast biopsy. PRIOR EXAMS 01/17/2024, 09/07/2023, 03/01/2023, 02/23/2023, 08/14/2022, 02/16/2022, 02/06/2022, 12/31/2021, 11/08/2020, 09/28/2019, 09/09/2018, 09/07/2017, 09/04/2016. MAMMOGRAPHY TECHNIQUE: 2D and 3D (tomosynthesis) digital mammographic views obtained, with additional images as needed for full coverage. Current study was also evaluated with a Computer Aided Detection (CAD) system. ULTRASOUND TECHNIQUE Real-time rendon scale and color doppler imaging of the area of clinical interest was performed with image documentation. TARGETED Left Breast Ultrasound: Real-time ultrasound exam was performed focused to area of clinical and/or imaging concern. DENSITY D. The breasts are extremely dense, which lowers the sensitivity of mammography. MAMMOGRAPHY FINDINGS Right: Benign-appearing calcification noted on the right. There are no suspicious masses, calcifications, or other findings in the breast. Left: Upper Central, Anterior depth: A skin marker was placed in the area of concern, and no mammographic abnormalities are identified or to account for concern by the patient of a palpable lump. No suspicious mass, asymmetry, microcalcification, or other abnormality seen. Left: Biopsy marker present on the left. Benign-appearing calcification noted on the left. There are no suspicious masses, calcifications, or other findings in the breast. ULTRASOUND FINDINGS Left: Upper at 12:00, 3 cm from nipple, measuring 0.5 x 0.3 x 0.4 cm: There is a simple cyst present. Clinical concern by the patient of a palpable lump is explained by benign findings. This may or may not be related to the patient's palpable abnormality given size of the finding, and depth within dense fibroglandular tissue. IMPRESSION: * No evidence of malignancy with benign findings. RECOMMENDATIONS Bilateral * Annual screening mammography. COMMENTS: Findings and recommendations were conveyed to the patient during today's evaluation. OVERALL ASSESSMENT CATEGORY BI-RADS-2: Benign. The [employer] recommends annual screening mammography beginning at age 40 for women with average risk of breast cancer. ELECTRONICALLY SIGNED: Colleen Reyes M.D. on 02/08/2025 at 10:53:00 AM PT Interpreting Station ID: [id number]
== END ==
LOC: MAMMO 08:40
PROVIDERS: PCP Family Medicine; Referring Provider Family Medicine; Visit Provider Family Medicine
DX: N60.02 Solitary cyst of left breast (principal); R92.1 Mammographic calcification found on diagnostic imaging of breast; R92.323 Mammographic fibroglandular density, bilateral breasts; Z80.3 Family history of malignant neoplasm of breast
CPT/HCPCS: 76642; 77066; G0279

== ENCOUNTER → 2025-03-05 09:23 | Outpatient (CLI) | payer OTHER, SELFPAY ==
[2024-06-01 13:23] VITALS: BMI 31.3
== END ==
PROVIDERS: PCP Family Medicine; Referring Provider Nurse Practitioner Family; Visit Provider Nurse Practitioner Family
DX: R30.0 Dysuria (principal)
CPT/HCPCS: 87077; 87086; 87186

== ENCOUNTER → 2025-03-27 08:51 | Outpatient (CLI) | payer OTHER, SELFPAY ==
[2024-06-01 13:23] VITALS: BMI 31.3
== END ==
LOC: LAB 08:52
PROVIDERS: PCP Family Medicine; Visit Provider Chiropractor
DX: R30.0 Dysuria (principal)
CPT/HCPCS: 87077; 87086; 87186

== ENCOUNTER → 2025-05-26 09:47 | Outpatient (CLI) | payer OTHER, SELFPAY ==
[2024-06-01 13:23] VITALS: BMI 31.3
== END ==
PROVIDERS: PCP Family Medicine; Visit Provider Chiropractor
DX: R30.0 Dysuria (principal)
CPT/HCPCS: 87077; 87086; 87186

== ENCOUNTER → 2025-05-29 13:22 | Outpatient (CLI) | payer OTHER, SELFPAY ==
[2024-06-01 13:23] VITALS: BMI 31.3
[2025-05-29 14:06] LABS: Estimated Glomerular Filt Rate > 60 mL/min (>60)
== END ==
PROVIDERS: PCP Family Medicine; Referring Provider Family Medicine; Visit Provider Family Medicine
DX: N39.0 Urinary tract infection, site not specified (principal)
CPT/HCPCS: 36415; 82565